=== PATIENT | male | born 1930 | race Caucasian/White ===

== ENCOUNTER 2016-08-12 05:36 | Inpatient (IN) | payer MEDICARE ==
[~2016-08-12] VITALS: Ht 177.8 cm; Wt 109.0 kg
--- NOTE | ~2016-08-12 | FD ---
ADMIT: 08/12/2016 RM/LOC: 427 [facility] MR#: [id number] [address] [address] PAULINE MOLINA [address] [place] [address] Final Diagnosis SEX: M AGE: 85 : 1930 ADMISSION DATE: 08/12/2016 DISCHARGE DATE: 08/13/2016 The patient admitted on the and dismissed on the ., FINAL DIAGNOSES: 1. Atypical chest pain. 2. Coronary artery disease. Norbert Mireles MD/ omid JOB #: [id number] CC: Kali Saha MD, Attending Physician Kali Saha MD, Family Physician
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
[2016-08-13] MEDS ORDERED: THERA1 EACH PO (13:00)
[2016-08-13] MEDS ORDERED: MIRALAX PACKET17 GM PO (13:01)
[2016-08-13] MEDS ORDERED: ISORDIL DPS30 MG PO (13:01)
[2016-08-13] MEDS ORDERED: ALDACTONE DPS25 MG PO (13:01)
[2016-08-13] MEDS ORDERED: OCUVITE SOFTGE1 EACH PO (13:01)
[2016-08-13] MEDS ORDERED: BYSTOLIC5 MG PO ×2 (13:01→13:02)
[2016-08-13] MEDS ORDERED: PRILOSEC DPS20 MG PO (13:01)
[2016-08-13] MEDS ORDERED: GLUCOPHAGE-DPS500 MG PO (13:01)
[2016-08-13] MEDS ORDERED: REGLAN DPS5 MG PO (13:02)
[2016-08-13] MEDS ORDERED: CARAFATE DPS1 GM PO (13:02)
[2016-08-13] MEDS ORDERED: KLOR-CON 1010 MEQ PO (13:02)
[2016-08-13] MEDS ORDERED: NITROSTAT0.4 MG SL (13:03)
[2016-08-13] MEDS ORDERED: LIPITOR DPS20 MG PO (13:03)
[2016-08-13] MEDS ORDERED: PROVENTIL HFA6.7 GM IH (13:03)
[2016-08-13] MEDS ORDERED: ASCORBIC ACID500 MG PO (13:03)
[2016-08-13] MEDS ORDERED: NEURONTIN DPS300 MG PO (13:03)
[2016-08-13] MEDS ORDERED: LASIX DPS40 MG PO (13:04)
[2016-08-13] MEDS ORDERED: ASPIR 8181 MG PO (13:04)
[2016-08-13] MEDS ORDERED: NORVASC DPS10 MG PO (13:04)
[2016-08-13] MEDS ORDERED: DESYREL-DPS50 MG PO (13:04)
[2016-08-13] MEDS ORDERED: APRESOLINE-DPS25 MG PO (13:04)
[2016-08-13] MEDS ORDERED: MAG-OX400 MG PO (13:04)
[2016-08-13] MEDS ORDERED: TYLENOL DPS325 MG PO (13:05)
--- NOTE | 2016-08-20 23:31 | ER ---
ADMIT: 08/12/2016 RM/LOC: 427 [facility] MR#: [id number] [address] [place], [place] [address] [facility] [address] [place] [address] Emergency Room Report SEX: M AGE: 85 : 1930 DATE: 08/12/2016 ADDENDUM: See T-sheet for complete H and P. An 85-year-old gentleman with previous coronary artery disease diagnosis, comes in complaining of chest pain. This pain began about 5-1/2 hours ago while he was lying in bed. He described it as a sharp pain in the center of his chest that has been pretty much constant since onset. He states he is not short of breath, but does have some worsening pain at times when he takes deep breaths. He has had no episode prior to arrival, but did have some episode shortly after he got to the ER. The patient also has a history of AZ in the past. We did our cardiac routine on the patient and he did not get any change in his symptoms with the first nitroglycerin, and the second nitroglycerin caused his pressure to drop. He was then given some morphine for pain with maybe some slight improvement in his pain. He never became completely chest pain free, however. His EKG did not show any findings consistent with ST-elevation or acute AZ that I could appreciate. Chest x-ray did not show any acute findings either. He did get aspirin as part of our cardiac routine workup and at this point, I decided to admit the patient and we will start him on heparin ACS protocol. I spoke to Dr. Mireles, he will be admitting the patient. I have also contacted Dr. Saha, who was on for Cardiology this morning. DIAGNOSIS: Chest pain. Ac Marino MD/ omid JOB #: [id number] CC: Kali Saha MD, Attending Physician Kali Saha MD, Family Physician
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
== END 2016-08-13 12:05 | disposition home or self-care (01) | DRG 313 ==
LOC: ER 05:36 → 4PCU 06:52
PROVIDERS: ADMIT Family Medicine
DX: R07.89 Other chest pain (principal); I25.10 Atherosclerotic heart disease of native coronary artery without angina pectoris; E11.22 Type 2 diabetes mellitus with diabetic chronic kidney disease; J44.9 Chronic obstructive pulmonary disease, unspecified; N40.0 Benign prostatic hyperplasia without lower urinary tract symptoms; I12.9 Hypertensive chronic kidney disease with stage 1 through stage 4 chronic kidney disease, or unspecified chronic kidney disease; N18.9 Chronic kidney disease, unspecified; E78.5 Hyperlipidemia, unspecified; K21.9 Gastro-esophageal reflux disease without esophagitis; F32.9 Major depressive disorder, single episode, unspecified; E11.9 Type 2 diabetes mellitus without complications; Z95.0 Presence of cardiac pacemaker; Z95.5 Presence of coronary angioplasty implant and graft; Z79.84 Long term (current) use of oral hypoglycemic drugs; Z79.82 Long term (current) use of aspirin

== ENCOUNTER 2016-08-16 11:21 | Emergency (ER) | payer MEDICARE ==
[~2016-08-16 11:21] MED LIST: ALDACTONE DPS25 MG PO; APRESOLINE-DPS25 MG PO; ASCORBIC ACID500 MG PO; ASPIR 8181 MG PO; BYSTOLIC5 MG PO; CARAFATE DPS1 GM PO; DESYREL-DPS50 MG PO; GLUCOPHAGE-DPS500 MG PO; ISORDIL DPS30 MG PO; KLOR-CON 1010 MEQ PO; LASIX DPS40 MG PO; LIPITOR DPS20 MG PO; MAG-OX400 MG PO; MIRALAX PACKET17 GM PO; NEURONTIN DPS300 MG PO; NITROSTAT0.4 MG SL; NORVASC DPS10 MG PO; OCUVITE SOFTGE1 EACH PO; PRILOSEC DPS20 MG PO; PROVENTIL HFA6.7 GM IH; REGLAN DPS5 MG PO; THERA1 EACH PO; TYLENOL DPS325 MG PO
--- NOTE | 2016-08-28 18:34 | ER ---
ADMIT: 08/16/2016 RM/LOC: ER [facility] MR#: [id number] [address] [facility] [place], [place] [address] PAULINE MOLINA [address] [place] [address] Emergency Room Report SEX: M AGE: 85 : 1930 DATE: 08/16/2016 ADDENDUM: An 85-year-old white male, came in with shortness of breath. Essentially, he has congestive heart failure. We are just adjusting his Lasix to 120 daily. Then he needs to follow up with his doctor. Other than that, he has no other associated findings. This is chronic in nature, so we are just adjusting some medications to see if that will help. CONDITION ON DISCHARGE: Good. Allan Bruner MD/ omid JOB #: [id number] CC: Allan Bruner MD, Attending Physician Kali Saha MD, Family Physician
== END 2016-08-16 15:30 | disposition home or self-care (01) ==
LOC: ER 11:21
DX: I25.10 Atherosclerotic heart disease of native coronary artery without angina pectoris (principal); E11.22 Type 2 diabetes mellitus with diabetic chronic kidney disease; I12.9 Hypertensive chronic kidney disease with stage 1 through stage 4 chronic kidney disease, or unspecified chronic kidney disease; N18.9 Chronic kidney disease, unspecified; E78.5 Hyperlipidemia, unspecified; Z95.0 Presence of cardiac pacemaker; Z88.8 Allergy status to other drugs, medicaments and biological substances; Z79.899 Other long term (current) drug therapy